=== PATIENT | male | born 1960 | race Caucasian/White ===

== ENCOUNTER 2021-04-21 05:44 | Day surgery (SDC) | payer OTHER ==
[~2021-04-21] VITALS: Ht 193 cm; Wt 84.4 kg
--- NOTE | ~2021-04-21 | OP ---
PATIENT NAME: EDER SHAH MEDICAL RECORD: [id number] :64 LOCATION:[facility] ADMISSION DATE: SURGEON: FROY EVANS MD DATE OF OPERATION: 04/21/2021 PREOPERATIVE DIAGNOSES: Lumbar spinal stenosis and foraminal stenosis L3-4 and L4-5 left with right L3-4 and L4-5 foraminal stenosis. PROCEDURES: Left L3-4 and L4-5 laminectomy, medial facetectomy and foraminotomy with sublaminar decompression at L3-4 and L4-5 on the right. SURGEON: Froy Evans MD. DESCRIPTION OF TECHNIQUE: After induction of general endotracheal anesthesia, the patient was rolled prone on a Juan frame. Lumbar spine was prepped and draped in the usual sterile fashion. Fluoroscopic x-ray and spinal needle localized the L3-4 interspace on the left side. After infiltration of 1:100,000 epinephrine with 1% lidocaine, a series of dilators were used to advance a METRx retractor to the L3-4 interspace on the left side. The level was confirmed with fluoroscopic x-ray. A microscope and Midas Jai drill were used to perform a laminectomy, medial facetectomy, and foraminotomy at L3-4 on the left as well as L4-5 on the left. Hypertrophied ligamentum flavum was removed on the left and then the spinous processes of L3 and L4 were undermined with the Midas Jai drill. Hypertrophied ligamentum flavum was removed from the right side within the canal and neural foramen at L3-4 and L4-5 on the right under microscopic illumination. Following this, the L3 and L4 nerve roots were decompressed on both sides. Meticulous hemostasis was maintained throughout the wound. The wound was irrigated with copious amounts of Ancef irrigant solution. The retractor was removed. The fascia was closed with 2-0 Vicryl suture. The subdermal layer was closed with 3-0 Vicryl suture. The skin was closed with juanjose. A sterile dressing was applied to the wound. The patient was awakened in good condition and taken to recovery. All counts were reported as correct. Estimated blood loss is minimal. TRANSINT:[id number] Voice Confirmation ID: [id number] DOCUMENT ID: [id number] FROY EVANS MD CC: [id number] DICTATION DATE: 04/21/212218 WOOD COATER: 06/10/[address] [facility] 04/21/21 [id number] [place] [address]
[~2021-04-21 05:44] MED LIST: LISINOPRIL30 MG PO
[2021-04-21 06:28] LABS: BASOPHILS 1.1 % (0-2); EOSINOPHILS 4.1 % (0-7); HEMOGLOBIN 15.8 g/dL (13.5-17.5); LYMPHOCYTES 19.8 % (15-50); MCH 35.1 pg (26.0-34.0); MCHC 33.6 g/dL (31.0-37.0); MCV 104.2 fL (80.0-100.0); MEAN PLATELET VOLUME 9.5 fL (7.4-10.4); MONOCYTES 8.9 % (2-11); NEUTROPHILS 66.1 % (40-80); PLATELET COUNT 158 10x3/uL (130-400); RBC 4.51 10x6/uL (4.20-6.10); RDW 13.5 % (11.5-14.5); WBC 5.1 10x3/uL (4.8-10.8)
[2021-04-21 07:00] LABS: CALC OSMOLALITY 277 mosm/kg (275-300); CALCIUM 8.8 mg/dL (8.5-10.1); CARBON DIOXIDE 27.6 mmol/L (21.0-32.0); CHLORIDE - SERUM 106 mmol/L (98-107); CREATININE - SERUM 0.8 mg/dL (0.6-1.3); GLUCOSE 104 mg/dL (74-106); SARS-CoV-2 ANTIGEN NEGATIVE- SARS-COV-2 (NEGATIVE); SODIUM 140 mmol/L (136-145); UREA NITROGEN 10 mg/dL (7-18); eGFR NON AFRICAN AMERICAN > 90 mL/min (90-120)
[2021-04-21 07:05] VITALS: BP 169/82; Ht 193 cm; Wt 84.4 kg
[2021-04-21] MEDS ORDERED: MEDROL DOSE PACK4 MG PO (09:06)
[2021-04-21] MEDS ORDERED: HYDROCODON-ACE1 EA10 PO (09:06)
--- NOTE | 2021-04-21 12:26 | NUR ---
1205 VOIDED LARGE AMT. 1210 IV REMOVED AND PRESSURE HELD. INSTRUCTIONS GIVEN
== END 2021-04-21 12:25 | disposition home or self-care (01) ==
LOC: D.OPS 05:44
PROVIDERS: Anesthesiology; ATTEND Neurological Surgery
DX: M48.061 Spinal stenosis, lumbar region without neurogenic claudication (principal); I10 Essential (primary) hypertension; M54.16 Radiculopathy, lumbar region